=== PATIENT | male | born 1950 | race Caucasian/White ===

== ENCOUNTER 2018-01-23 22:49 | Emergency (ER) | payer MEDICARE, OTHER ==
[~2018-01-23] VITALS: Ht 172.7 cm; Wt 113.4 kg
[2018-01-23] MEDS ORDERED: NS IV 1000 ML 1,000 ML IV SCH (23:05)
[2018-01-23] MEDS ORDERED: RT-ALBUTEROL/IPRATROPIUM 3 ML (DUONEB) VIAL INH ONE (23:15)
--- NOTE | 2018-01-23 23:19 | ED General ---
General Stated Complaint: N/V,FATIGUE,LIGHT HEADED Source of Information: Patient, EMS Exam Limitations: No Limitations History of Present Illness Date Seen by Provider: Jan 23, 2018 Time Seen by Provider: 23:00 Initial Comments The patient presents to ER by EMS with chief complaint the past 2 weeks she's been feeling weaker and tired with a sometimes productive cough. He said he felt okay today when he got up and went to the [employer] to have some fine and after he was done when he went to stand up to leave the about fell over and [facility] staff had to catch him and help him back to a chair. The second time he tried to get up he couldn't stand on his own power so they called EMS. EMS said his blood sugar was 157. He does have a history of diabetes as well as COPD. He smokes about a pack and half cigarettes per day. He does not drink alcohol but he says he was drinking pop all day. He does use insulin as well as pills. He does not miss his medications. He hasn't as needed albuterol inhaler that he uses yesterday but he has not used any today. He denies any wheezing or productive cough right now. He denies fevers or chills. He had some nausea earlier and started to vomit so EMS gave him Zofran which took away his nausea. He denies any coronary disease. He is not having any pain anywhere. Allergies and Home Medications Allergies Coded Allergies: Penicillins (Unverified Allergy, Unknown, unk, 01/23/18) Patient Home Medication List Home Medication List Reviewed: Yes Review of Systems Review of Systems Constitutional: No chills, No diaphoresis EENTM: No no symptoms reported, No ear discharge Respiratory: No cough, No short of breath Cardiovascular: No chest pain, No edema, No Hx of Intervention, No palpitations Gastrointestinal: No abdominal pain, No constipation, No diarrhea, No nausea Genitourinary: No discharge, No dysuria Musculoskeletal: No back pain, No joint pain Past Pibekac-Onnwpr-Afuhvk Hx Patient Social History Alcohol Use: Denies Use Recreational Drug Use: No Smoking Status: Current Everyday Smoker Type Used: Cigarettes (1.5 ppd) Physical Exam Vital Signs Vital Signs - First Documented 01/23/18 01/23/18 22:50 23:28 Temp 97.8 Pulse 61 Resp 22 B/P (MAP) 110/73 (85) Pulse Ox 94 O2 Delivery Room Air O2 Flow Rate 2.00 Capillary Refill : Height, Weight, BMI Height: '" Weight: lbs. oz. kg; BMI Method: General Appearance: WD/WN, Mild Distress Eyes: Bilateral Eye Normal Inspection, Bilateral Eye PERRL, Bilateral Eye EOMI HEENT: PERRL/EOMI, TMs Normal, Normal ENT Inspection, Pharynx Normal; No Moist Mucous Membranes Neck: Full Range of Motion, Normal Inspection, Supple Respiratory: Chest Non Tender, No Accessory Muscle Use, No Respiratory Distress , Decreased Breath Sounds, Rales (few scattered basilar) Cardiovascular: Regular Rate, Rhythm, No Edema, No JVD, Normal Peripheral Pulses Gastrointestinal: Normal Bowel Sounds, Non Tender, Soft Extremity: Normal Capillary Refill, Normal Inspection, Non Tender Neurologic/Psychiatric: Alert, Oriented x3 Skin: Normal Color, Warm/Dry Focused Exam Lactate Level 01/23/18 23:52: Lactic Acid Level 1.03 Lactic Acid Level Laboratory Tests Test 01/23/18 23:52 Lactic Acid Level 1.03 MMOL/L (0.50-2.00) Progress/Results/Core Measures Suspected Sepsis SIRS Temperature: Pulse: Respiratory Rate: Laboratory Tests 01/23/18 22:50: White Blood Count 10.9 Blood Pressure / Mean: 01/23/18 23:52: Lactic Acid Level 1.03 Laboratory Tests 01/23/18 22:50: Creatinine 1.27, INR Comment 1.0, Platelet Count 213, Total Bilirubin 0.3 Results/Orders Lab Results Laboratory Tests Test 01/23/18 22:50 01/23/18 23:09 01/23/18 23:52 01/24/18 01:29 Range/Units White Blood Count 10.9 4.3-11.0 10^3/uL Red Blood Count 4.32 L 4.35-5.85 10^6/uL Hemoglobin 11.9 L 13.3-17.7 G/DL Hematocrit 37 L 40-54 % Mean Corpuscular Volume 86 80-99 FL Mean Corpuscular Hemoglobin 28 25-34 PG Mean Corpuscular Hemoglobin Concent 32 32-36 G/DL Red Cell Distribution Width 13.4 10.0-14.5 % Platelet Count 213 130-400 10^3/uL Mean Platelet Volume 11.0 H 7.4-10.4 FL Neutrophils (%) (Auto) 58 42-75 % Lymphocytes (%) (Auto) 33 12-44 % Monocytes (%) (Auto) 7 0-12 % Eosinophils (%) (Auto) 2 0-10 % Basophils (%) (Auto) 1 0-10 % Neutrophils # (Auto) 6.3 1.8-7.8 X 10^3 Lymphocytes # (Auto) 3.6 1.0-4.0 X 10^3 Monocytes # (Auto) 0.7 0.0-1.0 X 10^3 Eosinophils # (Auto) 0.2 0.0-0.3 10^3/uL Basophils # (Auto) 0.1 0.0-0.1 10^3/uL Prothrombin Time 13.2 12.2-14.7 SEC INR Comment 1.0 0.8-1.4 Activated Partial Thromboplast Time 32 24-35 SEC D-Dimer 2.72 H 0.00-0.49 UG/ML Sodium Level 135 135-145 MMOL/L Potassium Level 4.3 3.6-5.0 MMOL/L Chloride Level 102 98-107 MMOL/L Carbon Dioxide Level 20 L 21-32 MMOL/L Anion Gap 13 5-14 MMOL/L Blood Urea Nitrogen 12 7-18 MG/DL Creatinine 1.27 0.60-1.30 MG/DL Estimat Glomerular Filtration Rate 59 BUN/Creatinine Ratio 9 Glucose Level 167 H 70-105 MG/DL Calcium Level 9.3 8.5-10.1 MG/DL Corrected Calcium 9.2 8.5-10.1 MG/DL Magnesium Level 2.3 1.8-2.4 MG/DL Total Bilirubin 0.3 0.1-1.0 MG/DL Aspartate Amino Transf (AST/SGOT) 17 5-34 U/L Alanine Aminotransferase (ALT/SGPT) 16 0-55 U/L Alkaline Phosphatase 114 40-136 U/L Troponin I < 0.30 <0.30 NG/ML C-Reactive Protein High Sensitivity 0.52 H 0.00-0.50 MG/DL B-Type Natriuretic Peptide 12.3 <100.0 PG/ML Total Protein 7.4 6.4-8.2 GM/DL Albumin 4.1 3.2-4.5 GM/DL Glucometer 170 H 70-110 MG/DL Lactic Acid Level 1.03 0.50-2.00 MMOL/L Urine Color YELLOW Urine Clarity CLEAR Urine pH 6 5-9 Urine Specific [place] 1.010 L 1.016-1.022 Urine Protein 1+ H NEGATIVE Urine Glucose (UA) NEGATIVE NEGATIVE Urine Ketones NEGATIVE NEGATIVE Urine Nitrite NEGATIVE NEGATIVE Urine Bilirubin NEGATIVE NEGATIVE Urine Urobilinogen NORMAL NORMAL MG/DL Urine Leukocyte Esterase 1+ H NEGATIVE Urine RBC (Auto) NEGATIVE NEGATIVE Urine RBC NONE /HPF Urine WBC RARE /HPF Urine Squamous Epithelial Cells RARE /HPF Urine Crystals NONE /LPF Urine Bacteria TRACE /HPF Urine Casts NONE /LPF Urine Mucus NEGATIVE /LPF Urine Culture Indicated NO Urine Opiates Screen NEGATIVE NEGATIVE Urine Oxycodone Screen NEGATIVE NEGATIVE Urine Methadone Screen NEGATIVE NEGATIVE Urine Propoxyphene Screen NEGATIVE NEGATIVE Urine Barbiturates Screen NEGATIVE NEGATIVE Ur Tricyclic Antidepressants Screen NEGATIVE NEGATIVE Urine Phencyclidine Screen NEGATIVE NEGATIVE Urine Amphetamines Screen NEGATIVE NEGATIVE Urine Methamphetamines Screen NEGATIVE NEGATIVE Urine Benzodiazepines Screen NEGATIVE NEGATIVE Urine Cocaine Screen NEGATIVE NEGATIVE Urine Cannabinoids Screen POSITIVE H NEGATIVE Test 01/24/18 01:34 Range/Units Troponin I < 0.30 <0.30 NG/ML Micro Results Microbiology 01/23/18 Influenza Types A,B Antigen (MARINE) - Final, Complete My Orders Orders - DEVORA BRICE Ekg Tracing (01/23/18 22:55) Continuous Ekg Monitoring (01/23/18 22:55) BNP (01/23/18 23:05) Cbc With Automated Diff (01/23/18 23:05) Comprehensive Metabolic Panel (01/23/18 23:05) Hs C Reactive Protein (01/23/18 23:05) Fibrin Degradation Products (01/23/18 23:05) Drug Screen Stat (Urine) (01/23/18 23:05) Magnesium (01/23/18 23:05) Protime With Inr (01/23/18 23:05) Partial Thromboplastin Time (01/23/18 23:05) Troponin I (01/23/18 23:05) Ua Culture If Indicated (01/23/18 23:05) Blood Culture (01/23/18 23:05) Influenza A And B Antigens (01/23/18 23:05) Sputum Culture (01/23/18 23:05) Albuterol/Ipra Inhalation Soln (Duoneb I (01/23/18 23:15) Saline Lock/Iv-Start (01/23/18 23:05) Ns Iv 1000 Ml (Sodium Chloride 0.9%) (01/23/18 23:05) Lactic Acid Analyzer (01/23/18 23:05) Svn Small Volume Nebulizer (01/23/18 23:05) Chest 1 View, Ap/Pa Only (01/23/18 23:05) Accucheck Stat ONCE (01/23/18 23:47) Ct Angio Chest W (01/24/18 00:12) Orthostatic Vital Signs (Adult (01/24/18 00:13) Iohexol Injection (Omnipaque 350 Mg/Ml 1 (01/24/18 01:00) Contrast Received (Contrast Received) (01/24/18 01:00) Ns (Ivpb) (Sodium Chloride 0.9%) (01/24/18 01:00) Troponin I (01/24/18 01:00) Medications Given in ED Current Medications Medications Dose Ordered Sig/James Route Start Time Stop Time Status Last Admin Dose Admin Albuterol/ Ipratropium 3 ml ONCE ONCE INH 01/23/18 23:15 01/23/18 23:16 DC 01/23/18 23:37 3 ML Iohexol 150 ml ONCE ONCE IV 01/24/18 01:00 01/24/18 01:01 DC 01/24/18 00:57 140 ML Sodium Chloride 250 ml ONCE ONCE IV 01/24/18 01:00 01/24/18 01:01 DC 01/24/18 00:57 80 ML Vital Signs/I&O 01/23/18 01/23/18 01/23/18 01/24/18 22:50 23:28 23:37 00:15 Temp 97.8 Pulse 61 67 75 70 Resp 22 B/P (MAP) 110/73 (85) 128/69 (88) 140/83 (102) 140/75 (96) Pulse Ox 94 96 97 O2 Delivery Room Air Nasal Cannula Nasal Cannula O2 Flow Rate 2.00 1.00 01/24/18 00:00 Intake Total 0 ml Balance 0 ml Capillary Refill : Progress Note : Time: 23:34 Progress Note D-dimer, chest x-ray, urine, labs, DuoNeb. The patient's oxygen sats dipped into the 80s just as he was talking. Stay around 91-93% on room air. ECG Initial ECG Impression Date: Jan 23, 2018 Initial ECG Impression Time: 22:54 Initial ECG Rate: 60 Initial ECG Rhythm: Normal Sinus Initial ECG Intervals: Normal Initial ECG Impression: Normal Diagnostic Imaging Diagonstic Imaging: Xray Plain Films/CT/US/NM/MRI: chest (1v) Comments No acute cardio pulmonary processes noted. Reviewed: Reviewed by Me Diagonstic Imaging: CT (angiogram) Plain Films/CT/US/NM/MRI: chest Comments No acute cardio pulmonary changes. No osseous abnormality. No pulmonary embolisms. COPD with mild interstitial stranding in the lung bases. No lobar consolidation , pleural or pericardial effusion noted. No evidence of pulmonary artery emboli. 5 cm left hepatic lobe capsular Hepatic Hemangioma. Reviewed: Reviewed by Me Departure Impression Primary Impression: Bronchitis Disposition: 01 HOME, SELF-CARE Condition: Stable Departure-Patient Inst. Decision time for Depature: 02:41 Patient Instructions: Acute Bronchitis, Adult (DC) Add. 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 Use your rescue inhaler having difficulty breathing, coughing fits or wheezing. Follow up with your primary care provider in the next 1-2 weeks. Scripts Prednisone (Prednisone) 20 Mg Tab 40 MG PO DAILY for 5 Days, #10 TAB 0 Refills Prov: DEVORA BRICE 01/24/18 DEVORA BRICE Jan 23, 2018 23:19
[2018-01-23 23:42] LABS: BASOPHILS # (AUTO) 0.1 10^3/uL (0.0-0.1); BASOPHILS % (AUTO) 1 % (0-10); EOSINOPHILS # (AUTO) 0.2 10^3/uL (0.0-0.3); EOSINOPHILS % (AUTO) 2 % (0-10); HEMATOCRIT 37 % (40-54); HEMOGLOBIN 11.9 G/DL (13.3-17.7); LYMPHOCYTES # (AUTO) 3.6 X 10^3 (1.0-4.0); LYMPHOCYTES % (AUTO) 33 % (12-44); MEAN CORPUSCULAR HEMOGLOBIN 28 PG (25-34); MEAN CORPUSCULAR HGB CONC 32 G/DL (32-36); MEAN CORPUSCULAR VOLUME 86 FL (80-99); MONOCYTES # (AUTO) 0.7 X 10^3 (0.0-1.0); MONOCYTES % (AUTO) 7 % (0-12); NEUTROPHILS # (AUTO) 6.3 X 10^3 (1.8-7.8); NEUTROPHILS % (AUTO) 58 % (42-75); PLATELET COUNT 213 10^3/uL (130-400); RED BLOOD COUNT 4.32 10^6/uL (4.35-5.85); RED CELL DISTRIBUTION WIDTH 13.4 % (10.0-14.5); WHITE BLOOD COUNT 10.9 10^3/uL (4.3-11.0)
[2018-01-23 23:57] LABS: ALANINE AMINOTRANSFERASE 16 U/L (0-55); ALBUMIN 4.1 GM/DL (3.2-4.5); ALKALINE PHOSPHATASE 114 U/L (40-136); BILIRUBIN,TOTAL 0.3 MG/DL (0.1-1.0); BUN/CREATININE RATIO 9; CALCIUM 9.3 MG/DL (8.5-10.1); CARBON DIOXIDE 20 MMOL/L (21-32); CHLORIDE 102 MMOL/L (98-107); CREATININE SERUM 1.27 MG/DL (0.60-1.30); FIBRIN DEGRADATION PRODUCTS 2.72 UG/ML (0.00-0.49); GFR ESTIMATED 59; GLUCOSE 167 MG/DL (70-105); MAGNESIUM 2.3 MG/DL (1.8-2.4); POTASSIUM 4.3 MMOL/L (3.6-5.0); PROTHROMBIN TIME PATIENT 13.2 SEC (12.2-14.7); SODIUM 135 MMOL/L (135-145); TOTAL PROTEIN 7.4 GM/DL (6.4-8.2)
[2018-01-24 00:15] VITALS: BP_SYST 128; BP_SYST 140; BP_DIAS 69; BP_DIAS 75; BP_DIAS 83
[2018-01-24] MEDS ORDERED: RECEIVED CONTRAST (Hold Metformin) IV SCH (01:00)
[2018-01-24] MEDS ORDERED: NS 250 ML (IVPB) BAG IV ONE (01:00)
[2018-01-24] MEDS ORDERED: IOHEXOL 350 MG/ML 150 ML (OMNIPAQUE 350) VIAL IV ONE (01:00)
[2018-01-24 01:37] LABS: BILIRUBIN,URINE NEGATIVE (NEGATIVE); CLARITY,URINE CLEAR; COLOR,URINE YELLOW; GLUCOSE, URINE (UA) NEGATIVE (NEGATIVE); KETONES,URINE NEGATIVE (NEGATIVE); LEUKOCYTE ESTERASE ,URINE 1+ (NEGATIVE); NITRITE,URINE NEGATIVE (NEGATIVE); PH,URINE 6 (5-9); PROTEIN,URINE 1+ (NEGATIVE); UROBILINOGEN,URINE NORMAL (NORMAL)
[2018-01-24 01:49] LABS: AMPHETAMINE SCREEN, URINE NEGATIVE (NEGATIVE); BARBITURATE SCREEN URINE NEGATIVE (NEGATIVE); BENZODIAZEPINES SCREEN URINE NEGATIVE (NEGATIVE); CANNABINOID SCREEN, URINE POSITIVE (NEGATIVE); COCAINE SCREEN URINE NEGATIVE (NEGATIVE); METHADONE STAT NEGATIVE (NEGATIVE); METHAMPHETAMINE SCREEN URINE S NEGATIVE (NEGATIVE); OPIATE SCREEN URINE NEGATIVE (NEGATIVE); OXYCODONE STAT NEGATIVE (NEGATIVE); PROPOXYPHENE STAT NEGATIVE (NEGATIVE); TRICYCLIC ANTIDEPRESSANTS SCRE NEGATIVE (NEGATIVE)
[2018-01-24 01:50] LABS: BACTERIA,URINE TRACE /HPF; SQUAMOUS EPITHELIAL CELL,UR RARE /HPF; WBC,URINE RARE /HPF
[2018-01-24] MEDS ORDERED: PRD20T PO (02:43)
[2018-01-24 02:55] VITALS: BP 112/91
--- NOTE | 2018-01-24 07:59 | Diagnostic Imaging Report ---
INDICATION: Weakness and dizziness Frontal chest obtained at 1126 PM. Heart is borderline in size. There is mild central vascular prominence. There is no acute consolidation or pneumothorax or pleural fluid. IMPRESSION: Borderline heart size with mild central vascular prominence. No acute edema or infiltrate or pleural fluid. Dictated by: Dictated on workstation # [id number]
--- NOTE | 2018-01-24 08:25 | Diagnostic Imaging Report ---
Indication: Dizziness and weakness. CTA chest obtained with IV contrast bolus and axial slices and MIP reconstructions. Pulmonary parenchymal vessels are well opacified with no pulmonary emboli. There is no evidence of aortic dissection or aneurysm. Great vessel origins are unremarkable. There is no pleural or pericardial fluid. Lung parenchymal windows demonstrate some linear scarring or atelectasis in both lung bases. There is a calcified granuloma in the right lower lobe. There are calcified granuloma in the right hilum. There are mildly enlarged nodes in the mediastinum, including a 2.0 x 1.8 cm node adjacent to the origin of the right mainstem bronchus anterior. There is a mildly enlarged 1.8 x 1.3 cm node in the AP window. We have no previous studies for comparison. Visualized portions of the upper abdomen demonstrate mild fatty infiltration of the liver. There is an exophytic peripherally enhancing lesion in the left lobe of the liver measuring about 5 cm. This is compatible with hemangioma. There is a benign-appearing cyst in the left kidney measuring about 2.8 cm. The patient has had cholecystectomy. Impression: No CT evidence of pulmonary emboli or aortic dissection. There is parenchymal scarring or atelectasis in both lung bases with COPD changes. There are mildly enlarged nodes in the mediastinum as above, these nodes may be reactive or neoplastic. Suggest either followup with PET imaging or followup CT chest as clinically warranted. There are separate areas of granulomatous change as above. There is an incidental cyst in the left kidney. There is a 5 cm hemangioma in the left hepatic lobe. Faxed to [facility] at 8:25 a.m. by josé. Dictated by: Dictated on workstation # [id number]
== END 2018-01-24 02:55 | disposition home or self-care (01) ==
LOC: EDBD 22:52 → ER 22:52
DX: J40 Bronchitis, not specified as acute or chronic (principal); E11.9 Type 2 diabetes mellitus without complications; J44.9 Chronic obstructive pulmonary disease, unspecified; F17.210 Nicotine dependence, cigarettes, uncomplicated; Z88.0 Allergy status to penicillin; Z79.51 Long term (current) use of inhaled steroids
CPT/HCPCS: 36415; 71045; 71275; 80053; 80306; 81000; 82962; 83605; 83735; 83880; 84484; 85025; 85379; 85610; 85730; 86141; 87040; 87804; 93005; 94640; 96360; 96361